=== PATIENT | male | born 1955 | race Caucasian/White ===

== ENCOUNTER 2018-10-09 03:25 | Emergency (ER) | payer BC, MEDICARE, OTHER ==
[2018-10-09] MEDS ORDERED: KETOROLAC TROMETHAMINE 60 MG/2 ML SDV IM ONE (04:22)
--- NOTE | 2018-10-09 04:53 | ER Document Report ---
HPI - HPI Time Seen by Provider: 10/09/18 04:15 Pain Level: 4 Context: Patient is a 63-year-old male that comes to the emergency department with chief complaint of right knee pain and swelling. He states he has this frequently, in both knees, usually he needs fluid drawn off and a cortisone injection. He denies obvious injury, denies redness, fever/chills, or any other complaints. He follows with local orthopedics. He is not on a blood thinner, past medical history of hypertension, hyperlipidemia, type 2 diabetes. He denies any other complaints. Past Medical History - General Information source: Patient - Social History Smoking Status: Never Smoker Drug Abuse: None Lives with: Alone Family History: Reviewed & Not Pertinent - Past Medical History Cardiac Medical History: Reports: Hx Hypertension Endocrine Medical History: Reports: Hx Diabetes Mellitus Type 2 - Immunizations Immunizations up to date: Yes Hx Diphtheria, Pertussis, Tetanus Vaccination: Yes Vertical Provider Document - CONSTITUTIONAL General Appearance: WD/WN, No Apparent Distress - Patient has obvious pain and limp with walking but otherwise is in no distress - HEENT HEENT: Atraumatic, Normal ENT Exam, Normocephalic - NECK Neck: Normal Inspection - RESPIRATORY Respiratory: Breath Sounds Normal, No Respiratory Distress - CARDIOVASCULAR Cardiovascular: Regular Rate, Regular Rhythm - GI/ABDOMEN Gastrointestinal: Abdomen Soft, Abdomen Non-Tender - BACK Back: Normal Inspection - MUSCULOSKELETAL/EXTREMETIES Musculoskeletal/Extremeties: MAEW, FROM, Tender - No abnormal erythema or heat noted to the knee. Tenderness over the anterior inferior aspect of the right knee, some pain with range of motion but range of motion is intact, normal hip exam, normal leg, ankle exam, normal distal neurovascular exam. - NEURO Level of Consciousness: Awake, Alert, Appropriate Motor/Sensory: No Motor Deficit, No Sensory Deficit - DERM Integumentary: Warm, Dry, No Rash Course - Re-evaluation Re-evalutation: Patient does have a lot of pain walking on the knee, states he does not do well with crutches or knee immobilizer although he does have them at home. However there is no erythema, abnormal heat, and patient still has range of motion. No fever. I do not suspect a septic joint. He does have tenderness mainly over the anterior and inferior aspect of the knee. Patient has diabetes and hypertension, therefore anti-inflammatories will be taken at home and limited am ount, this was discussed. He is asking for possible aspiration of the fluid from the knee joint, however there is no effusion on x-ray. I did provide patient with a copy of his images and report from the x-ray because of the degenerative changes and his knee pain. Patient does have close orthopedic follow-up after the holiday weekend. Patient was provided with pain medication because of the limited options otherwise and because of his pain, discussed precautions, discussed treatment, discussed follow-up, and discussed return precautions. Patient states understanding and agreement. - Vital Signs Vital signs: Temp Pulse Resp BP Pulse Ox 97.5 F 86 18 121/70 95 10/09/18 04:02 10/09/18 04:02 10/09/18 04:02 10/09/18 04:02 10/09/18 04:02 Discharge - Discharge Clinical Impression: Right knee pain Qualifiers: Chronicity: acute Qualified Code(s): M25.561 - Pain in right knee Condition: Stable Disposition: HOME, SELF-CARE Additional Instructions: The imaging shows degenerative changes but there is no noted effusion (fluid) in the knee joint. Ice the knee 3-4 times a day for 10 to 15 minutes, elevate, take the pain medication if needed in addition to your usual remedies. If you do take it also take the stool softener. Follow-up closely with your orthopedic provider for additional management. Return if you worsen including worsening swelling, developing redness, fever/chills, inability to move the knee, or any other concerning symptoms. Prescriptions: Docusate Sodium [Colace 100 mg Capsule] 100 mg PO ASDIR PRN #30 capsule PRN Reason: Hydrocodone/Acetaminophen [[place] 5-325 mg Tablet] 1 - 2 tab PO ASDIR #10 tablet
--- NOTE | 2018-10-09 05:02 | RADIOLOGY REPORT (SQ) ---
CLINICAL HISTORY: right knee pain/swelling COMPARISON: None. TECHNIQUE: XR KNEE 4 OR MORE VIEWS 10/09/2018 4:22 AM CDT FINDINGS: There is no fracture. There is moderate narrowing of the medial knee compartment. There is chondrocalcinosis. Soft tissues are unremarkable. IMPRESSION: No acute osseous findings.
[2018-10-09 05:53] VITALS: BP 125/69
== END 2018-10-09 05:51 | disposition home or self-care (01) ==
LOC: ER 03:25
DX: M25.561 Pain in right knee (principal); M79.89 Other specified soft tissue disorders; I10 Essential (primary) hypertension; E11.9 Type 2 diabetes mellitus without complications
CPT/HCPCS: 99283; 73564; J1885

== ENCOUNTER 2019-01-28 16:06 | Emergency (ER) | payer MEDICARE ==
--- NOTE | 2019-01-28 16:57 | ER Document Report ---
ED Medical Screen (RME) - General Chief Complaint: Dizziness Stated Complaint: DIZZINESS Time Seen by Provider: 01/28/19 16:54 Mode of Arrival: Ambulatory Information source: Patient Notes: 63-year-old male presented to ED for complaint of dizziness last night. He states he was not able to stand up for about half an hour. He states he went to the doctor today they did a EKG and told him to come right to the emergency room. He is alert oriented respirations regular and unlabored speaking in full sentences at this time. He is able to walk with a even steady gait. He states his visit to the doctor was a scheduled visit. He states he has a history of elevated blood pressure cholesterol that he is on medication for. He states he did have his heart checked out a couple years ago. He states he also takes meclizine for vertigo. I have greeted and performed a rapid initial assessment of this patient. A comprehensive ED assessment and evaluation of the patient, analysis of test results and completion of medical decision making process will be conducted by an additional ED providers. - Related Data Allergies/Adverse Reactions: No Known Allergies Allergy (Verified 01/28/19 16:10) Past Medical History - Past Medical History Cardiac Medical History: Reports: Hx Hypertension Endocrine Medical History: Reports: Hx Diabetes Mellitus Type 2 - Immunizations Immunizations up to date: Yes Hx Diphtheria, Pertussis, Tetanus Vaccination: Yes Physical Exam - Vital signs Vitals: Temp Pulse Resp BP Pulse Ox 97.4 F 101 H 16 123/81 93 01/28/19 16:40 01/28/19 16:40 01/28/19 16:40 01/28/19 16:40 01/28/19 16:40 Course - Vital Signs Vital signs: Temp Pulse Resp BP Pulse Ox 97.4 F 101 H 16 123/81 93 01/28/19 16:40 01/28/19 16:40 01/28/19 16:40 01/28/19 16:40 01/28/19 16:40
[2019-01-28] MEDS ORDERED: ASPIRIN 81 MG TABLET, CHEWABLE PO ONE (16:58)
--- NOTE | 2019-01-28 17:47 | RADIOLOGY REPORT (SQ) ---
EXAM DESCRIPTION: CHEST 2 VIEWS COMPLETED DATE/TIME: 01/28/2019 5:36 pm REASON FOR STUDY: Sent by primary care after getting EKG COMPARISON: 07/18/2009 EXAM PARAMETERS: NUMBER OF VIEWS: two views TECHNIQUE: Digital Frontal and Lateral radiographic views of the chest acquired. RADIATION DOSE: NA LIMITATIONS: none FINDINGS: LUNGS AND PLEURA: No opacities, masses or pneumothorax. No pleural effusion. MEDIASTINUM AND HILAR STRUCTURES: No masses or contour abnormalities. HEART AND VASCULAR STRUCTURES: Heart normal size. No evidence for failure. BONES: No acute findings. HARDWARE: None in the chest. OTHER: No other significant finding. IMPRESSION: NO ACUTE RADIOGRAPHIC FINDING IN THE CHEST. TECHNICAL DOCUMENTATION: JOB ID: [id number] [employer]- All Rights Reserved Reading location - IP/workstation name: [email or web address]
[2019-01-28 19:31] LABS: ABSOLUTE EOSINOPHILS # (AUTO) 0.1 10^3/uL (0.0-0.6); ABSOLUTE LYMPHOCYTES (AUTO) 2.4 10^3/uL (0.5-4.7); ABSOLUTE MONOCYTES (AUTO) 0.9 10^3/uL (0.1-1.4); ABSOLUTE NEUT (AUTO) 5.2 10^3/uL (1.7-8.2); BASOPHILS % (AUTO) 0.4 % (0-2); EOSINOPHILS % (AUTO) 1.7 % (0-6); HEMATOCRIT 43.5 % (37.9-51.0); HEMOGLOBIN 14.5 g/dL (13.5-17.0); LYMPHOCYTES % (AUTO) 27.7 % (13-45); MEAN CORPUSCULAR HGB CONC 33.4 g/dL (32.0-36.0); MEAN CORPUSCULAR VOLUME 93 fl (80-97); PLATELET COUNT 297 10^3/uL (150-450); RED BLOOD COUNT 4.67 10^6/uL (4.35-5.55); RED CELL DISTRIBUTION WIDTH 13.6 % (11.5-14.0); SEGMENTED NEUTROPHILS % (AUTO) 60.2 % (42-78); TOTAL CELLS COUNTED % (AUTO) 100 %; WHITE BLOOD COUNT 8.6 10^3/uL (4.0-10.5)
[2019-01-28 19:40] LABS: ALBUMIN 4.4 g/dL (3.5-5.0); ALKALINE PHOSPHATASE 72 U/L (38-126); ANION GAP 7 (5-19); ASPARTATE AMINO TRANSFERASE 23 U/L (17-59); BILIRUBIN,DIRECT 0.2 mg/dL (0.0-0.4); BILIRUBIN,TOTAL 0.4 mg/dL (0.2-1.3); BLOOD UREA NITROGEN 18 mg/dL (7-20); CALCIUM 9.6 mg/dL (8.4-10.2); CARBON DIOXIDE 33 mmol/L (22-30); CHLORIDE 99 mmol/L (98-107); CREATINE KINASE 89 U/L (55-170); GLUCOSE 86 mg/dL (75-110); POTASSIUM 4.9 mmol/L (3.6-5.0); TOTAL PROTEIN 7.1 g/dL (6.3-8.2)
[2019-01-28 19:50] LABS: CREATINE KINASE MB 0.93 ng/mL (<4.55)
[2019-01-28 19:54] LABS: TROPONIN I < 0.012 ng/mL
[2019-01-28 21:15] LABS: APPEARANCE,URINE CLEAR; BILIRUBIN,URINE NEGATIVE (NEGATIVE); COLOR,URINE YELLOW; GLUCOSE, URINE NEGATIVE (NEGATIVE); KETONES,URINE NEGATIVE (NEGATIVE); LEUKOCYTE ESTERASE,URINE NEGATIVE (NEGATIVE); NITRITE,URINE NEGATIVE (NEGATIVE); PROTEIN,URINE NEGATIVE (NEGATIVE); URINE SPECIFIC GRAVITY 1.021; UROBILINOGEN,URINE NEGATIVE mg/dL (<2.0)
--- NOTE | 2019-01-28 21:51 | ER Document Report ---
ED General - General Chief Complaint: Dizziness Stated Complaint: DIZZINESS Time Seen by Provider: 01/28/19 16:54 Mode of Arrival: Ambulatory - HPI Notes: Patient is a 63-year-old male who presents to the emergency department for evaluation. He states he was laying in bed last night, turned over and became extremely dizzy. He describes vertigo. He has a history of vertigo. He states his symptoms lasted about a half an hour. He took meclizine and his symptoms subsided. He went to his primary care provider today for routine follow-up. He describes the episode to the physician pediatric medical assistant. She performed an EKG, according to the patient, there was concern about the heart rate, so he was sent here to the emergency department for further evaluation. The patient denies any chest pain, palpitations, difficulty breathing. He states he has had intermittent difficulty breathing for the past several months, was told he likely has COPD. He is a former smoker. He states he normally has these dizzy episodes nearly every day. He has had occasional tinnitus, but denies any tinnitus associated with this. No hearing loss. - Related Data Allergies/Adverse Reactions: No Known Allergies Allergy (Verified 01/28/19 16:10) Past Medical History - General Information source: Patient - Social History Smoking Status: Former Smoker Frequency of alcohol use: Heavy Drug Abuse: None Family History: Reviewed & Not Pertinent Patient has suicidal ideation: No Patient has homicidal ideation: No - Past Medical History Cardiac Medical History: Reports: Hx Hypercholesterolemia, Hx Hypertension Pulmonary Medical History: Reports: Hx COPD Endocrine Medical History: Reports: Hx Diabetes Mellitus Type 2 - Borderline per patient - Immunizations Immunizations up to date: Yes Hx Diphtheria, Pertussis, Tetanus Vaccination: Yes Review of Systems - Review of Systems Constitutional: No symptoms reported EENT: See HPI Cardiovascular: No symptoms reported Respiratory: No symptoms reported Gastrointestinal: No symptoms reported Genitourinary: No symptoms reported Skin: No symptoms reported Hematologic/Lymphatic: No symptoms reported Neurological/Psychological: See HPI Physical Exam - Vital signs Vitals: Temp Pulse Resp BP Pulse Ox 97.4 F 101 H 16 123/81 93 01/28/19 16:40 01/28/19 16:40 01/28/19 16:40 01/28/19 16:40 01/28/19 16:40 - Notes Notes: Vital signs reviewed, please refer to chart. Head is normocephalic, atraumatic. Pupils equal round, reactive to light. Right TM is obscured by cerumen. Left TM is pearly wagner with good light reflex. Neck is supple without meningismus. Heart is regular rate and rhythm. Lungs are clear to auscultation bilaterally. Abdomen is soft, nontender, normoactive bowel sounds throughout. Extremities without cyanosis, clubbing. Posterior calves are nontender. Peripheral pulses are equal. Skin is warm and dry. Patient is awake, alert, oriented x3. Cranial nerves II - XII are grossly intact without focal neurological deficits. Strength is plus 5 out of 5 bilateral upper and lower extremities. Sensation is intact. Reflexes symmetrical. Intact [id number], rapid alternating movements, [id number]. Course - Re-evaluation Re-evalutation: 01/28/19 21:49 Patient presents emergency department for evaluation. Initially he states he was here because of his vertigo, but he further states that he has vertigo nearly every day. His vertigo was only different and that he had never had it while lying down in bed. It entirely resolved after meclizine. He was seen by the physician if pediatric medical assistant at his primary care physician's office. Evidently he was mildly tachycardic at that time. The patient has no chest pain, no palpitations, no difficulty breathing. His heart rate here on EKG was 90. He was able to ambulate without any difficulties. Again his vertigo is entirely resolved after the meclizine last night, and he has not had any recurrences. I do not have any inclination to investigate this further. We will have him follow-up with primary care. He is to return to the ED with worsening or new concerning symptoms of any sort. - Vital Signs Vital signs: Temp Pulse Resp BP Pulse Ox 97.4 F 101 H 16 123/81 93 01/28/19 16:40 01/28/19 16:40 01/28/19 16:40 01/28/19 16:40 01/28/19 16:40 - Laboratory Result Diagrams: 01/28/19 16:57 01/28/19 18:53 Laboratory results interpreted by me: 01/28/19 18:53 Carbon Dioxide 33 H - Diagnostic Test Radiology reviewed: Reports reviewed Radiology results interpreted by me: 01/28/19 21:51 Chest X-Ray 01/28/19 16:57 IMPRESSION: NO ACUTE RADIOGRAPHIC FINDING IN THE CHEST. - EKG Interpretation by Me Additional EKG results interpreted by me: 01/28/19 21:51 Sinus mechanism with a rate of 90 bpm, PACs noted. Normal axis and intervals, nonspecific ST changes, but no acute changes concerning for ischemia or infarction. Discharge - Discharge Clinical Impression: Vertigo, Tachycardia Condition: Stable Disposition: HOME, SELF-CARE Instructions: Vertigo ([facility]) Additional Instructions: Your heart rate was mildly elevated here today, but it resolved without any sort of intervention. Continue meclizine as needed for vertigo. Follow-up with your primary care provider next week. If you develop worsening or new concerning symptoms of any sort, return immediately to the emergency department for evaluation.
[2019-01-28 22:07] VITALS: BP 119/89
--- NOTE | 2019-01-28 23:07 | EKG REPORT ---
SEVERITY:- ABNORMAL ECG - SINUS RHYTHM MULTIPLE ATRIAL PREMATURE COMPLEXES ABNRM R PROG, CONSIDER ASMI OR LEAD PLACEMENT : Confirmed by: Rachana Flowers MD 28-Jan-2019 23:06:07
== END 2019-01-28 22:10 | disposition home or self-care (01) ==
LOC: ER 16:06
DX: R42 Dizziness and giddiness (principal); R00.0 Tachycardia, unspecified; H61.21 Impacted cerumen, right ear; I49.1 Atrial premature depolarization; I10 Essential (primary) hypertension; Z87.891 Personal history of nicotine dependence
CPT/HCPCS: 93005; 36415; 82553; 82550; 83690; 85025; 80053; 81001; 84484; 71046; 93010; A9270; 99284